=== PATIENT | female | born 1975 | race Caucasian/White ===

== ENCOUNTER → 2016-06-10 | Outpatient (CLI) | payer OTHER ==
--- NOTE | 2016-06-13 11:02 | MM ---
Reason for exam: screening (asymptomatic). Baseline mammogram. History: Family history of breast cancer in paternal grandmother at age 80. Took hormonal contraceptives for 9 years beginning at age 14. Physical Findings: Nurse did not find any significant physical abnormalities on exam. MG Screening Mammo w CAD Bilateral CC and MLO view(s) were taken. The breast tissue is heterogeneously dense. This may lower the sensitivity of mammography. There is no discrete abnormality. These results were verbally communicated with the patient and result sheet given to the patient on 06/10/16. ASSESSMENT: Negative, BI-RAD 1 RECOMMENDATION: Routine screening mammogram of both breasts at age 42.
== END | disposition home or self-care (01) ==
LOC: RADMAMWWP 06:56
PROVIDERS: ATTEND Obstetrics & Gynecology
DX: Z12.31 Encounter for screening mammogram for malignant neoplasm of breast (principal)

== ENCOUNTER → 2017-09-13 | Outpatient (CLI) | payer BC | END | disposition home or self-care (01) | LOC: LABWHC1 13:38 | PROVIDERS: ATTEND Physician Assistant Medical | DX: L56.8 Other specified acute skin changes due to ultraviolet radiation (principal) | CPT/HCPCS: 36415; 86038 ==

== ENCOUNTER → 2017-11-14 | Outpatient (CLI) | payer BC ==
--- NOTE | 2017-11-15 11:52 | MM ---
Reason for exam: screening (asymptomatic). Last mammogram was performed 1 year and 5 months ago. History: Family history of breast cancer in paternal grandmother at age 80. Took hormonal contraceptives for 9 years beginning at age 14. Physical Findings: A clinical breast exam by your physician is recommended on an annual basis and results should be correlated with mammographic findings. MG Screening Mammo w CAD Bilateral CC and MLO view(s) were taken. Prior study comparison: June 10, 2016, bilateral MG screening mammo w CAD. The breast tissue is heterogeneously dense. This may lower the sensitivity of mammography. There are benign appearing round calcifications in the left breast. There is no discrete abnormality. ASSESSMENT: Benign, BI-RAD 2 RECOMMENDATION: Routine screening mammogram of both breasts in 1 year.
== END ==
LOC: RADMAMWWP 07:10
PROVIDERS: ATTEND Obstetrics & Gynecology
DX: Z12.31 Encounter for screening mammogram for malignant neoplasm of breast (principal); Z80.3 Family history of malignant neoplasm of breast
CPT/HCPCS: 77067

== ENCOUNTER → 2017-12-19 | Outpatient (CLI) | payer BC ==
--- NOTE | 2017-12-19 17:40 | CONS ---
CONSULTATION REASON FOR CONSULTATION: Sleep apnea. 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 She was having increased tiredness and fatigue and sleepiness during the day. For that reason, the patient underwent a home sleep study through her primary care physician. The patient was diagnosed having obstructive sleep apnea. Subsequently she was given an APAP unit. She initially got her APAP in 2017. She used this for quite some time; however, in the summer of 2017 she ended up quitting the treatment. Since then she has become much more somnolent and sleepy, to the point where she went back to her primary care physician and she is currently back using her APAP machine. The exact pressure setting is not known. The exact severity of the illness is not known, knowing that I do not have any access to her original home sleep study. Based on the data that is available to me, the patient's smart phone indicates that the patient's AHI is down to 2.7 while on treatment and clinically she is improving. She is not snoring while on the CPAP machine and she is using a full-face mask and she is looking for alternatives. She goes to bed around 9 p.m., wakes up at 5:30 a.m. in the morning. No dryness in her mouth. No grinding of the teeth. No gasping for air. No choking. No nocturia. No restlessness in the lower extremities. No sleepwalking or sleeptalking. No other complaints otherwise. PAST MEDICAL HISTORY: 1. Obstructive sleep apnea. 2. Allergic rhinitis. 3. Acid reflux. PAST SURGICAL HISTORY: 1. Cholecystectomy. 2. . 3. Vaginal ablation. DRUG ALLERGIES: NOT KNOWN. MEDICATIONS: Medications include Claritin and lansoprazole. SOCIAL HISTORY: Nonsmoker. No history of alcoholism. No history of IV drugs. FAMILY HISTORY: Mother has obstructive sleep apnea. REVIEW OF SYSTEMS: Twelve-point review of systems was done. Positive findings were all mentioned above in the history of present illness. PHYSICAL EXAMINATION: BP is 117/73, pulse 88, respirations 16, weight 158, height 5 feet 5 inches, BMI 26.2, [place] score 11. GENERAL APPEARANCE: Calm, comfortable. No acute distress. Head is atraumatic, normocephalic. NECK: Supple. There is no JVD. No goiter or neck masses. Mallampati class III. LUNGS: Clear to auscultation. HEART: Heart sounds are regular rate and rhythm. Normal S1, S2. No S3, S4. No murmurs. ABDOMEN: Soft, nontender. No organomegaly. EXTREMITIES: No edema. No cyanosis or clubbing. IMPRESSION: 1. Obstructive sleep apnea; diagnosis established by a home sleep study. Currently the patient is on an APAP. The patient is in to be checked for compliancy and success of treatment. 2. Mild residual hypersomnia. [place] Score is 11. PLAN: I asked the patient to come back at a later stage, bringing her original home sleep study that was done to establish diagnosis. I also asked the patient to bring in her CPAP machine mask, and we will make sure that the patient is compliant and the treatment is successful. The patient has a ResMed unit and would like to measure compliance data, efficacy of treatment and make any adjustments if needed in the future. For now, she is back on her treatment and she is feeling better. She is less drowsy and sleepy. May consider stimulant therapy if she continues to have residual hypersomnia despite being successfully treated with APAP. Further recommendations are to follow. MMODL / IJN: [id number] /
== END | disposition home or self-care (01) ==
LOC: SLEEP 15:26
PROVIDERS: ATTEND Internal Medicine Critical Care Medicine
DX: G47.33 Obstructive sleep apnea (adult) (pediatric) (principal); K21.9 Gastro-esophageal reflux disease without esophagitis; J30.9 Allergic rhinitis, unspecified; Z99.89 Dependence on other enabling machines and devices; Z79.899 Other long term (current) drug therapy
CPT/HCPCS: 99211

== ENCOUNTER → 2018-01-23 | Outpatient (CLI) | payer BC ==
--- NOTE | 2018-01-23 19:11 | PN ---
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 I saw her in consult approximately a month ago. Back then she did not have all the information available and today she is coming in with her home sleep study results and her CPAP machine. I reviewed the home sleep study that was done on 06/06/2016. This is a study that was done through [employer] apnea link system. Total recording duration was 8 hours and 41 minutes and there was adequate oxygen inflow recording. The apnea-hypopnea index was 26.6, slightly worse in the supine body position with an AHI of 32. Minimum pulse ox was 89%. There was no significant nocturnal oxygen desaturation. The patient was given an APAP which is at a minimum pressure of 5 and maximum pressure of 15. I checked her compliance data. The patient has been averaging around 4.1 hours of APAP use per night. Her APAP use for more than 4 hours is /. Her average P90 pressure is 12.6, and her AHI while on treatment is down to 3. She is using a full-face mask. However she is interested in pursuing a nose mask with a chin strap. Weight has been stable. She is waking up refreshed and alert and she is feeling much better since she went back on her APAP treatment. PHYSICAL EXAMINATION: BP is 119/81, pulse 72, respirations 16, temperature 98.6, saturation 99% on room air. Height is 5 feet, 5 inches, weight is 156, BMI 25.9. GENERAL APPEARANCE: Calm, comfortable. Head is atraumatic, normocephalic. NECK: Supple. No JVD. No goiter or neck masses. LUNGS: Clear to auscultation. HEART: Sounds regular rhythm. Normal S1, S2. No S3, S4. No murmurs. ABDOMEN: Soft, nontender. No organomegaly. EXTREMITIES: No edema. No cyanosis or clubbing. NEUROLOGIC: Alert and oriented x3. No focal neurological deficits. PSYCHIATRIC: Negative for anxiety or depression. IMPRESSION: 1. Obstructive sleep apnea, moderate to severe AHI of 26, worse in the supine body position, currently on APAP at a pressure of 5 and maximum pressure of 15. 2. Hypersomnia improving and her [place] score is down to 6. 3. Allergic rhinitis. 4. Chronic acid reflux. PLAN: 1. I offered the patient a DreamWear nose mask. 2. Continue the patient at same level of pressures and settings. 3. Implement good sleep hygiene measures. 4. Continue using the APAP treatment knowing that the treatment is successful and the patient's AHI is down to 3 from a baseline of 26. 5. Encourage compliancy. 6. We will continue to follow. Treatment is successful at this point in time. We will offer a chin strap should there be any oral leaks while wearing the nose mask. BORIS / BERTHAN: [id number] /
== END | disposition home or self-care (01) ==
LOC: SLEEP 13:23
PROVIDERS: ATTEND Internal Medicine Critical Care Medicine
DX: G47.33 Obstructive sleep apnea (adult) (pediatric) (principal); J30.9 Allergic rhinitis, unspecified; K21.9 Gastro-esophageal reflux disease without esophagitis; Z99.89 Dependence on other enabling machines and devices

== ENCOUNTER 2018-12-24 10:57 | Day surgery (SDC) | payer BC ==
[2018-12-21 11:55] VITALS: BMI 25.8
[~2018-12-24 10:57] MED LIST: LACTATED RINGERS 1,000 ML IV SCH
[2018-12-24 11:33] VITALS: RESP 16; TEMP 97.4
[2018-12-24] MEDS ORDERED: LIDOCAINE 1% 20 ML VIAL (10MG/ML) FOR IV START INTRADERMA ONE (11:33)
[2018-12-24] MEDS ORDERED: fentaNYL (PF) 50 MCG/ML 2 ML AMP ONE (11:34)
[2018-12-24] MEDS ORDERED: PROPOFOL 10 MG/ML 20 ML VIAL IV ONE (11:34)
[2018-12-24] MEDS ORDERED: MIDAZOLAM 2 MG/2 ML VIAL ONE (11:34)
--- NOTE | 2018-12-24 11:57 | P.PCN ---
Date of Procedure: 12/24/18 Description of Procedure: BRIEF HISTORY: Patient is a 43-year-old, pleasant, female patient presenting for outpatient EGD for further evaluation of symptoms of gastroesophageal reflux disease. She reports a long-standing history of GERD with her last EGD approximately 20 years ago. The patient does take PPI therapy with Prevacid one to 2 times daily with good relief of her symptoms. She does report intermittent episodes of solid food dysphagia. PROCEDURE PERFORMED: Esophagogastroduodenoscopy with biopsy. PREOPERATIVE DIAGNOSIS: GERD, esophageal dysphagia. ESTIMATED BLOOD LOSS: Minimal. IV sedation per anesthesia. PROCEDURE: After informed consent was obtained, the patient was brought into the endoscopy unit. IV sedation was administered by Anesthesia under continuous monitoring. Initially the Olympus GIF-190 video endoscope was inserted into the mouth. Esophagus intubated without any difficulty. It was gradually advanced into the stomach and duodenum and carefully examined. The bulb and the second part of the duodenum appeared normal, with biopsies taken. The scope at this time was withdrawn to the stomach, adequately insufflated with air, and upon careful examination, mucosa of the antrum, body, cardia and the fundus appeared normal except for some mild punctate erythema in the antrum and body suggestive of mild gastritis with biopsies of antrum and body taken. There were also a few diminutive polyps in the body of the stomach likely representing fundic gland polyps which were biopsied.. The scope was then withdrawn into the esophagus. The GE junction was located at 38 cm from the incisors, with biopsies taken in the setting of reflux. The esophagus appeared normal, with biopsies of the midesophagus taken to rule out eosinophilic esophagitis in the setting of solid food dysphagia. There were no erosions or ulcerations seen and the patient tolerated the procedure well. IMPRESSION: 1. Mild gastritis antrum and body, biopsied. 2. Gastric polyps (likely representing fundic gland polyps) biopsied. 3. Biopsies of the duodenum, GE junction and mid esophagus. RECOMMENDATIONS: The findings of this examination were discussed with the patient and her boyfriend. Okay to resume diet. Okay to resume medications. Await pathology from biopsies. Follow up in gastroenterology clinic in 1-2 weeks for results of biopsies and further management.
[2018-12-24 12:28] VITALS: BP 115/79; PULSE 71
== END 2018-12-24 12:47 | disposition home or self-care (01) ==
LOC: ORWHC2ENDO 10:57
PROVIDERS: ATTEND Internal Medicine
DX: K31.7 Polyp of stomach and duodenum (principal); K21.9 Gastro-esophageal reflux disease without esophagitis; Z79.899 Other long term (current) drug therapy; Z90.49 Acquired absence of other specified parts of digestive tract; Z88.0 Allergy status to penicillin; Z91.048 Other nonmedicinal substance allergy status
CPT/HCPCS: 88305; 43239; J2250; J3010; J2704

== ENCOUNTER → 2018-12-27 | Outpatient (CLI) | payer BC ==
--- NOTE | 2018-12-28 14:26 | MM ---
Reason for exam: screening (asymptomatic). Last mammogram was performed 1 year and 1 month ago. History: Family history of breast cancer in paternal grandmother at age 80. Took hormonal contraceptives for 9 years beginning at age 14. Physical Findings: A clinical breast exam by your physician is recommended on an annual basis and results should be correlated with mammographic findings. MG Screening Mammo w CAD Bilateral CC and MLO view(s) were taken. Prior study comparison: November 14, 2017, bilateral MG screening mammo w CAD. June 10, 2016, bilateral MG screening mammo w CAD. The breast tissue is heterogeneously dense. This may lower the sensitivity of mammography. No suspicious abnormality. No significant changes when compared with prior studies. ASSESSMENT: Negative, BI-RAD 1 RECOMMENDATION: Routine screening mammogram of both breasts in 1 year.
== END | disposition home or self-care (01) ==
LOC: RADMAMWWP 07:11
PROVIDERS: ATTEND Obstetrics & Gynecology
DX: Z12.31 Encounter for screening mammogram for malignant neoplasm of breast (principal)
CPT/HCPCS: 77067

== ENCOUNTER → 2019-11-13 | Outpatient (CLI) | payer BC | END | disposition home or self-care (01) | LOC: LABWHC1 10:40 | PROVIDERS: ATTEND Family Medicine | DX: Z20.828 Contact with and (suspected) exposure to other viral communicable diseases (principal) | CPT/HCPCS: U0003; C9803 ==

== ENCOUNTER → 2020-01-06 | Outpatient (CLI) | payer BC ==
--- NOTE | 2020-01-07 09:30 | MM ---
Reason for exam: screening (asymptomatic). Last mammogram was performed 1 year ago. History: Family history of breast cancer in paternal grandmother at age 80. Took hormonal contraceptives for 9 years beginning at age 24. Took estrogen for 1 year. Took progesterone for 1 year. Physical Findings: A clinical breast exam by your physician is recommended on an annual basis and results should be correlated with mammographic findings. MG Screening Mammo w CAD Bilateral CC and MLO view(s) were taken. Prior study comparison: December 27, 2018, bilateral MG screening mammo w CAD. November 14, 2017, bilateral MG screening mammo w CAD. The breast tissue is heterogeneously dense. This may lower the sensitivity of mammography. There is no discrete abnormality. No significant changes when compared with prior studies. ASSESSMENT: Negative, BI-RAD 1 RECOMMENDATION: Routine screening mammogram of both breasts in 1 year.
== END | disposition home or self-care (01) ==
LOC: RADMAMWWP 08:01
PROVIDERS: ATTEND Obstetrics & Gynecology
DX: Z12.31 Encounter for screening mammogram for malignant neoplasm of breast (principal)
CPT/HCPCS: 77067

== ENCOUNTER → 2020-01-13 | Outpatient (CLI) | payer BC | END | disposition home or self-care (01) | LOC: LABWHC1 12:33 | PROVIDERS: ATTEND Family Medicine | DX: J02.9 Acute pharyngitis, unspecified (principal) | CPT/HCPCS: 87502; U0003; C9803 ==

== ENCOUNTER → 2020-01-15 | Outpatient (CLI) | payer BC | END | disposition home or self-care (01) | LOC: LABWHC1 13:03 | PROVIDERS: ATTEND Family Medicine | DX: J02.9 Acute pharyngitis, unspecified (principal) | CPT/HCPCS: U0003; C9803 ==

== ENCOUNTER → 2021-01-06 | Outpatient (CLI) | payer BC ==
--- NOTE | 2021-01-07 11:47 | MM ---
Reason for exam: screening (asymptomatic). Last mammogram was performed 1 year ago. History: Family history of breast cancer in paternal grandmother at age 80. Took hormonal contraceptives for 9 years beginning at age 24. Taking estrogen for 1 year. Took progesterone for 1 year. Physical Findings: A clinical breast exam by your physician is recommended on an annual basis and results should be correlated with mammographic findings. MG Screening Mammo w CAD Bilateral CC and MLO view(s) were taken. Prior study comparison: January 06, 2020, bilateral MG screening mammo w CAD. December 27, 2018, bilateral MG screening mammo w CAD. The breast tissue is heterogeneously dense. This may lower the sensitivity of mammography. There is no new dominant lesion. Asymmetric breast tissue right breast, stable. ASSESSMENT: Negative, BI-RAD 1 RECOMMENDATION: Routine screening mammogram of both breasts in 1 year.
== END | disposition home or self-care (01) ==
LOC: RADMAMWWP 07:52
PROVIDERS: ATTEND Obstetrics & Gynecology
DX: Z12.31 Encounter for screening mammogram for malignant neoplasm of breast (principal); Z80.3 Family history of malignant neoplasm of breast
CPT/HCPCS: 77067

== ENCOUNTER → 2021-10-12 | Outpatient (CLI) | payer BC ==
--- NOTE | 2021-10-12 15:10 | US ---
EXAMINATION TYPE: US pelvic complete DATE OF EXAM: 10/12/2021 COMPARISON: US 2017 CLINICAL HISTORY: N92.0 EXCESSIVE AND FREQUENT MENSTRUATION. Intermittent right pelvic pain, heavy pe riod 2 months ago, cramping, history of ablation 5 years ago TECHNIQUE: . Transabdominal sonographic images of the pelvis were acquired. Date of LMP: 09/10/2021 EXAM MEASUREMENTS: Uterus: 9.2 x 5.1 x 6.1 cm Endometrial Stripe: 1.0 cm Right Ovary: 3.1 x 1.3 x 2.1 cm Left Ovary: 3.3 x 1.8 x 2.0 cm 1. Uterus: heterogeneous 2. Endometrium: appears wnl 3. Right Ovary: wnl 4. Left Ovary: wnl 5. Bilateral Adnexa: wnl 6. Posterior cul-de-sac: wnl IMPRESSION: No significant abnormality seen.
== END | disposition home or self-care (01) ==
LOC: RADUSWWP 14:05
PROVIDERS: ATTEND Obstetrics & Gynecology
DX: N92.0 Excessive and frequent menstruation with regular cycle (principal); R10.2 Pelvic and perineal pain
CPT/HCPCS: 76856

== ENCOUNTER → 2022-01-12 | Outpatient (CLI) | payer BC ==
--- NOTE | 2022-01-13 09:08 | MM ---
Reason for Exam: Screening (asymptomatic). Last screening mammogram was performed 12 month(s) ago. Patient History: Menarche at age 15. First Full-Term at age 31. Patient used Estrogen for 1 year. Patient used Progesterone for 1 year. Currently using Hormonal Contraceptives, starting at age 46. Paternal grandmother had breast cancer, age 80. Last menstrual period: 09/10/2021 Risk Values: Allie 5 year model risk: 0.9%. NCI Lifetime model risk: 10.7%. Prior Study Comparison: 12/27/2018 Bilateral Screening Mammogram, [facility]. 01/06/2020 Bilateral Screening Mammogram, [facility]. 01/06/2021 Bilateral Screening Mammogram, [facility]. Tissue Density: The breast tissue is heterogeneously dense. This may lower the sensitivity of mammography. Findings: Analyzed By CAD. There is no suspicious group of microcalcifications or new suspicious mass in either breast. Asymmetric right breast tissue is stable. No significant change from prior exams. Overall Assessment: Negative, BI-RAD 1 Management: Screening Mammogram of both breasts in 1 year. A clinical breast exam by your physician is recommended on an annual basis and results should be correlated with mammographic findings. Electronically signed and approved by: Ranjeet Thomas D.O.
== END | disposition home or self-care (01) ==
LOC: RADMAMWWP 15:12
PROVIDERS: ATTEND Obstetrics & Gynecology
DX: Z12.31 Encounter for screening mammogram for malignant neoplasm of breast (principal); Z80.3 Family history of malignant neoplasm of breast
CPT/HCPCS: 77067

== ENCOUNTER → 2022-10-06 | Outpatient (CLI) | payer BC ==
[2022-10-06 17:10] LABS: Basophils # (A) 0.07 X 10*3/uL (0.00-0.10); Basophils % (A) 1.2 %; Eosinophils # (A) 0.22 X 10*3/uL (0.04-0.35); Eosinophils % (A) 3.7 %; HCT 43.5 % (37.2-46.3); HGB 14.1 d/dL (12.0-15.0); Lymphocytes # (A) 2.23 X 10*3/uL (0.90-5.00); Lymphocytes % (A) 37.4 %; MCH 30.6 pg (27.0-32.0); MCHC 32.4 d/dL (32.0-37.0); MCV 94.4 FL (80.0-97.0); Mean Platelet Volume 10.8 FL (9.5-12.2); Monocytes # (A) 0.56 X 10*3/uL (0.20-1.00); Monocytes % (A) 9.4 %; NRBC Per 100 WBC 0 X 10*3/uL (0.00-0.01); Neutrophils # (A) 2.88 X 10*3/uL (1.80-7.70); Neutrophils % (A) 48.1 %; Platelet Count 383 X 10*3/uL (140-440); RBC 4.61 X 10*6/uL (4.10-5.20); RDW 12.7 % (11.5-14.5); WBC 5.97 X 10*3/uL (4.50-10.00)
[2022-10-06 18:18] LABS: Anti-Smith Ab Interp Negative (Negative)
[2022-10-06 19:05] LABS: Hepatitis A Antibody IgM Nonreactive; Hepatitis B Core IgM Nonreactive; Hepatitis B Surface Antigen Nonreactive; Hepatitis C IgG Antibody Nonreactive
== END | disposition home or self-care (01) ==
LOC: LABWHC1 07:12
PROVIDERS: ATTEND Dermatology MOHS-Micrographic Surgery
DX: L24.9 Irritant contact dermatitis, unspecified cause (principal); L43.8 Other lichen planus
CPT/HCPCS: 36415; 80074; 82955; 84443; 85025; 86038; 86039; 86235

== ENCOUNTER → 2022-10-25 | Outpatient (CLI) | payer BC ==
[2022-10-25 18:21] LABS: HIV 2 AB Non-Reactive (Non-Reactive); HIV AB P24 Non-Reactive (Non-Reactive); HIV P24 AG Non-Reactive (Non-Reactive)
[2022-10-25 18:27] LABS: Hepatitis B Core IgM Nonreactive
[2022-10-26 06:10] LABS: Herpes simplex I and/or II IgM 0.69 INDEX (<=0.90); Herpes simplex IgG I Ab 0.55 (< or = 0.90); Herpes simplex IgG II Ab 0.17 (< or = 0.90)
[2022-10-26 12:07] LABS: ANA Pattern HOM
== END | disposition home or self-care (01) ==
LOC: LABWHC1 10:26
PROVIDERS: ATTEND Dermatology MOHS-Micrographic Surgery
DX: D37.01 Neoplasm of uncertain behavior of lip (principal)
CPT/HCPCS: 36415; 86038; 86039; 86694; 86695; 86696; 86705; 87390

== ENCOUNTER → 2022-10-26 | Outpatient (CLI) | payer BC | END | disposition home or self-care (01) | LOC: LABWHC1 15:56 | PROVIDERS: ATTEND Dermatology MOHS-Micrographic Surgery | DX: D37.01 Neoplasm of uncertain behavior of lip (principal) | CPT/HCPCS: 36415; 83036 ==

== ENCOUNTER → 2023-01-24 | Outpatient (CLI) | payer BC ==
--- NOTE | 2023-01-24 19:30 | MM ---
Reason for Exam: Screening (asymptomatic). Last screening mammogram was performed 12 month(s) ago. Patient History: Menarche at age 15. First Full-Term at age 31. Patient used Estrogen for 1 year. Patient used Progesterone for 1 year. Currently using Hormonal Contraceptives, starting at age 46. Currently using Unspecified Hormone, starting at age 47. Paternal grandmother had breast cancer, age 80. Risk Values: Allie 5 year model risk: 0.9%. NCI Lifetime model risk: 10.6%. Prior Study Comparison: 01/06/2020 Bilateral Screening Mammogram, [facility]. 01/06/2021 Bilateral Screening Mammogram, [facility]. 01/12/2022 Bilateral MG screening mammo w CAD, [facility]. Tissue Density: The breast tissue is heterogeneously dense. This may lower the sensitivity of mammography. Findings: Analyzed By CAD. Pattern appears symmetrical and stable. No significant interval change is evident. There are a few segmental calcifications within the left breast, present previously. No suspicious groups of microcalcifications, spiculated or lobular masses, architectural distortion or other secondary signs of malignancy are mammographically apparent. Overall Assessment: Benign, BI-RAD 2 Management: Screening Mammogram of both breasts in 1 year. A negative mammogram report should not preclude additional follow up of suspicious palpable abnormalities. Patient should continue monthly self breast exam. A clinical breast exam by your physician is recommended on an annual basis and results should be correlated with mammographic findings. Electronically signed and approved by: Sundar Ritchie D.O. Radiologis
== END | disposition home or self-care (01) ==
LOC: RADMAMWWP 07:15
PROVIDERS: ATTEND Obstetrics & Gynecology
DX: Z12.31 Encounter for screening mammogram for malignant neoplasm of breast (principal); Z80.3 Family history of malignant neoplasm of breast
CPT/HCPCS: 77067

== ENCOUNTER → 2024-01-30 | Outpatient (CLI) | payer BC ==
--- NOTE | 2024-01-30 15:48 | MM ---
Reason for Exam: Screening (asymptomatic). Last mammogram was performed 1 year(s) and 1 month(s) ago. Patient History: Menarche at age 15. First Full-Term at age 31. Patient used Estrogen for 1 year. Patient used Progesterone for 1 year. Currently using Hormonal Contraceptives, starting at age 46. Currently using Unspecified Hormone, starting at age 47. Paternal grandmother had breast cancer, age 80. Risk Values: Allie 5 year model risk: 0.9%. NCI Lifetime model risk: 10.5%. Prior Study Comparison: 01/06/2021 Bilateral Screening Mammogram, [facility]. 01/12/2022 Bilateral MG screening mammo w CAD, [facility]. 01/24/2023 Bilateral MG screening mammo w CAD, [facility]. Tissue Density: The breasts are heterogeneously dense, which may obscure small masses. Findings: Analyzed By CAD. Chronic nodularity on the right. Areas of asymmetric density are unchanged. There is no suspicious group of microcalcifications or new suspicious mass in either breast. Overall Assessment: Benign, BI-RAD 2 Management: Screening Mammogram of both breasts in 1 year. Patient should continue monthly self-breast exams. A clinical breast exam by your physician is recommended on an annual basis. This exam should not preclude additional follow-up of suspicious palpable abnormalities. Note on Allie scores and lifetime risk: 1. A Allie score greater than 3% is considered moderate risk. If this is the case, consider specialist referral to assess eligibility for a risk reducing agent. 2. If overall lifetime risk for the development of breast cancer is 20% or higher, the patient may qualify for future screening with alternating mammogram and breast MRI. [facility], , 01/30/2024 3:46 PM. Electronically signed and approved by: Daniel Armando M.D. Radiologist
== END | disposition home or self-care (01) ==
LOC: RADMAMWWP 07:10
PROVIDERS: ATTEND Obstetrics & Gynecology
DX: Z12.31 Encounter for screening mammogram for malignant neoplasm of breast (principal); Z80.3 Family history of malignant neoplasm of breast; R92.333 Mammographic heterogeneous density, bilateral breasts
CPT/HCPCS: 77067

== ENCOUNTER → 2024-06-15 | Outpatient (CLI) | payer BC ==
[2024-06-16 12:51] LABS: Potassium 24 Hour,Urine 65.6 mmol/24Hr (25.0-120.0)
== END | disposition home or self-care (01) ==
LOC: LABWHC1 09:41
PROVIDERS: ATTEND Family Medicine
DX: R35.89 Other polyuria (principal); R63.1 Polydipsia
CPT/HCPCS: 84133; 84300